=== PATIENT | female | born 2000 | race Caucasian/White ===

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

== ENCOUNTER → 2022-01-31 | Outpatient (CLI) | payer BC, OTHER | END | disposition home or self-care (01) | LOC: LAB 14:05 → LAB SHORT 14:05 | DX: O09.93 Supervision of high risk pregnancy, unspecified, third trimester (principal) | CPT/HCPCS: 87081; 87150 ==

== ENCOUNTER 2022-03-01 17:45 | Inpatient (IN) | payer BC, OTHER ==
[~2022-03-01] VITALS: Ht 160 cm; Wt 99.0 kg
[2022-03-01 18:22] LABS: BASOPHILS ABSOLUTE AUTO 0.02 K/mm3 (0.00-0.23); BASOPHILS PERCENT AUTO 0 % (0-2); EOSINOPHILS ABSOLUTE AUTO 0.05 K/mm3 (0.00-0.68); EOSINOPHILS PERCENT AUTO 1 % (0-6); Hematocrit 35.4 % (33.0-51.0); Hemoglobin 11.9 g/dL (11.5-16.0); IMMATURE GRAN ABSOLUTE AUTO 0.03 K/mm3 (0.00-0.10); IMMATURE GRAN PERCENT AUTO 0 % (0-1); LYMPHOCYTES ABSOLUTE AUTO 2.65 K/mm3 (0.84-5.20); LYMPHOCYTES PERCENT AUTO 28 % (21-46); MONOCYTES ABSOLUTE AUTO 0.89 K/mm3 (0.16-1.47); MONOCYTES PERCENT AUTO 9 % (4-13); Mean Corpuscular HGB 27.8 pg (26.0-34.0); Mean Corpuscular HGB Conc 33.6 g/dL (31.5-36.5); Mean Corpuscular Volume 83 fL (80-100); Mean Platelet Volume 11.6 fL (9.1-12.4); NEUTROPHILS ABSOLUTE AUTO 5.98 K/mm3 (1.96-9.15); NEUTROPHILS PERCENT AUTO 62 % (41-73); Platelet Count 279 K/mm3 (150-400); RDW Coefficient Variation 14.5 % (11.7-14.2); RDW Standard Deviation 43.4 fL (35.1-46.3); Red Blood Cell Count 4.28 M/mm3 (3.80-5.20); White Blood Cell Count 9.62 K/mm3 (4.00-11.30)
[2022-03-01] MEDS ORDERED: Aspir 8181 MG PO (19:32)
[2022-03-01] MEDS ORDERED: PRENATAL TABLE1 EAC2 PO (19:32)
[2022-03-03] MEDS ORDERED: IBUP800 PO (09:28)
[2022-03-03] MEDS ORDERED: ACET500 PO (09:28)
[2022-03-03] MEDS ORDERED: LABE200 PO (09:28)
[2022-03-03] MEDS ORDERED: DOC250 PO (09:28)
--- NOTE | 2022-03-03 11:40 | NUR ---
ID bands matched w/nb and verification form. Pt denies additional questions/concerns. Pt verbalized understanding of discharge instructions and teaching. Pt d/c'd home ambulatory to care of SO.
== END 2022-03-03 11:39 | disposition home or self-care (01) | DRG 807 ==
LOC: BC 17:45 → OBS 17:45 → BC 18:05
PROVIDERS: ADMIT Obstetrics & Gynecology
PROC: 10E0XZZ Delivery of Products of Conception, External Approach (ICD-10-PCS; principal; 2022-03-01)
PROC: 0KQM0ZZ Repair Perineum Muscle, Open Approach (ICD-10-PCS; 2022-03-01)
PROC: 10907ZC Drainage of Amniotic Fluid, Therapeutic from Products of Conception, Via Natural or Artificial Opening (ICD-10-PCS; 2022-03-01)
PROC: 3E0R3BZ Introduction of Anesthetic Agent into Spinal Canal, Percutaneous Approach (ICD-10-PCS; 2022-03-01)
PROC: 00HU33Z Insertion of Infusion Device into Spinal Canal, Percutaneous Approach (ICD-10-PCS; 2022-03-01)
DX: O10.92 Unspecified pre-existing hypertension complicating childbirth (principal); Z37.0 Single live birth; O99.214 Obesity complicating childbirth; Z3A.40 40 weeks gestation of pregnancy; Z86.16 Personal history of COVID-19; Z98.890 Other specified postprocedural states; Z79.899 Other long term (current) drug therapy; Z79.82 Long term (current) use of aspirin; O70.1 Second degree perineal laceration during delivery; O69.81X0 Labor and delivery complicated by cord around neck, without compression, not applicable or unspecified
CPT/HCPCS: 36415; 85025; 86850; 86900; 86901; A9270; J0360; J1885; J2001; J2590; J3010; J3475; J7120

== ENCOUNTER → 2024-03-28 | Outpatient (CLI) | payer BC, OTHER ==
[~2024-03-28] MED LIST changes: +ACET500 PO; +Aspir 8181 MG PO; +DOC250 PO; +IBUP800 PO; +LABE200 PO; +PRENATAL TABLE1 EAC2 PO
== END | disposition home or self-care (01) ==
LOC: LAB SHORT 11:51
DX: R30.0 Dysuria (principal)
CPT/HCPCS: 87077; 87086; 87186